=== PATIENT | female | born 1980 | race African-American/Black ===

== ENCOUNTER 2017-04-01 01:02 | Emergency (ER) | payer OTHER ==
[2017-04-01 01:12] VITALS: BP 116/62
--- NOTE | 2017-04-01 01:24 | ER Document Report ---
HPI - HPI Patient complains to provider of: sore throat and cough Onset: Other - Onset/Duration: Persistent Quality of pain: Burning Pain Level: 4 Context: 36 yo non smoker is c/o sore throat, congested cough, trouble sleeping. Seen and tx with decadron[place] no call about the culture yet. No fever. Had taken some of her husbands amoxicillina prior to strept test. No chest pain or SOB, No abd pain, no v/d. No rash. Associated Symptoms: None Exacerbated by: Other - swallowing Relieved by: Denies Similar symptoms previously: No Recently seen / treated by doctor: Yes - ROS ROS below otherwise negative: Yes Systems Reviewed and Negative: Yes All other systems reviewed and negative - REPRODUCTIVE Reproductive: DENIES: : Past Medical History - General Information source: Patient - Social History Smoking Status: Never Smoker Frequency of alcohol use: Occasional Drug Abuse: None Lives with: Family Family History: Reviewed & Not Pertinent - Medical History Medical History: Negative Surgical Hx: Negative - Immunizations Hx Diphtheria, Pertussis, Tetanus Vaccination: Yes Vertical Provider Document - CONSTITUTIONAL Agree With Documented VS: Yes Exam Limitations: No Limitations General Appearance: No Apparent Distress - INFECTION CONTROL TRAVEL OUTSIDE OF THE [place] IN LAST 30 DAYS: No - HEENT HEENT: Pharyngeal Erythema. negative: Conjuctival Injection, Tympanic Membrane Red - NECK Neck: Supple. negative: Lymphadenopathy-Left, Lymphadenopathy-Right - RESPIRATORY Respiratory: Breath Sounds Normal, No Respiratory Distress O2 Sat by Pulse Oximetry: 98 - CARDIOVASCULAR Cardiovascular: Regular Rate, Regular Rhythm - GI/ABDOMEN Gastrointestinal: Abdomen Soft, Abdomen Non-Tender, No Organomegaly - MUSCULOSKELETAL/EXTREMETIES Musculoskeletal/Extremeties: JEROMY PETTIT - NEURO Level of Consciousness: Awake, Alert - DERM Integumentary: Warm, Dry, No Rash Course - Re-evaluation Re-evalutation: 04/01/17 01:54 LMP 3 weeks ago, spouse vasectomy - Vital Signs Vital signs: Temp Pulse Resp BP Pulse Ox 98.3 F 72 16 116/62 98 04/01/17 01:06 04/01/17 01:06 04/01/17 01:06 04/01/17 01:06 04/01/17 01:06 Discharge - Discharge Clinical Impression: Sore throat, Cough Upper respiratory infection Qualifiers: URI type: unspecified URI Qualified Code(s): J06.9 - Acute upper respiratory infection, unspecified Condition: Good Disposition: HOME, SELF-CARE Instructions: Acetaminophen, Anti-Inflammatory Medication ([facility]), Sore Throat ( [facility]), Tessalon Perles ([facility]), Upper Respiratory Illness ([facility]) Additional Instructions: cool mist humidifier at night, wash it daily steam in shower tylenol and motrin for pain tessalon perles for the cough rest plenty of fluids to er if worse Prescriptions: Ibuprofen [Motrin 800 mg Tablet] 800 mg PO Q8HP PRN #30 tablet PRN Reason: Benzonatate [Tessalon Perles 100 mg Capsule] 100 mg PO ASDIR PRN #30 capsule PRN Reason:
[2017-04-01] MEDS ORDERED: IBUPROFEN 800 MG TABLET PO ONE (01:50)
[2017-04-01] MEDS ORDERED: ACETAMINOPHEN 325 MG TABLET PO ONE (01:50)
[2017-04-01] MEDS ORDERED: LIDOCAINE 2% VISCOUS SOLN 20 ML UDCUP PO ONE (01:51)
== END 2017-04-01 02:01 | disposition home or self-care (01) ==
LOC: ER 01:02
DX: J02.9 Acute pharyngitis, unspecified (principal); R05 Cough
CPT/HCPCS: 99282; J3490